=== PATIENT | female | born 1975 | race Two or more races ===

== ENCOUNTER 2017-09-12 14:58 | Inpatient (IN) | payer MEDICAID ==
[~2017-09-12] VITALS: Ht 160 cm; Wt 56.7 kg
[2017-09-12] MEDS ORDERED: Isovue-300 100ml vial INJ PRN (15:15)
[2017-09-12 15:30] VITALS: BP 98/66
[2017-09-12 15:47] LABS: BASOPHILS % (AUTO) 0.7 % (0.0-2.0); EOSINOPHILS % (AUTO) 1.8 % (0.0-3.0); HEMATOCRIT 26.5 % (37.0-47.0); HEMOGLOBIN 9.1 G/DL (12.0-16.0); LYMPHOCYTES % (AUTO) 15.7 % (20.0-45.0); MEAN CORPUSCULAR VOLUME 89 FL (80-99); MONOCYTES % (AUTO) 6.6 % (1.0-10.0); NEUTROPHILS % (AUTO) 75.2 % (45.0-75.0); PLATELET COUNT 351 K/UL (150-450); RED BLOOD COUNT 2.97 M/UL (4.20-5.40); RED CELL DISTRIBUTION WIDTH 12.2 % (11.6-14.8); WHITE BLOOD COUNT 11.4 K/UL (4.8-10.8)
[2017-09-12 15:54] LABS: ANION GAP 9 mmol/L (5-15); BLOOD UREA NITROGEN 13 mg/dL (7-18); CALCIUM 8.5 MG/DL (8.5-10.1); CARBON DIOXIDE 27 MMOL/L (21-32); CHLORIDE 105 MMOL/L (98-107); CREATININE 0.6 MG/DL (0.55-1.30); INR 0.9 (0.9-1.1); POTASSIUM 3.5 MMOL/L (3.5-5.1); SODIUM 141 MMOL/L (136-145)
[2017-09-12 15:57] LABS: ALANINE AMINOTRANSFERASE 28 U/L (12-78); ALBUMIN 3.3 G/DL (3.4-5.0); ALBUMIN/GLOBULIN RATIO 0.9 (1.0-2.7); ALKALINE PHOSPHATASE 57 U/L (46-116); ASPARTATE AMINO TRANSFERASE 19 U/L (15-37); BILIRUBIN,TOTAL 0.3 MG/DL (0.2-1.0); CREATINE KINASE 70 U/L (26-308)
[2017-09-12 16:30] VITALS: BP 88/59
[2017-09-12 16:41] LABS: BILIRUBIN, URINE NEGATIVE (NEGATIVE); GLUCOSE, URINE (UA) NEGATIVE (NEGATIVE); KETONES,URINE NEGATIVE (NEGATIVE); LEUKOCYTE ESTERASE ,URINE NEGATIVE (NEGATIVE); NITRITE,URINE NEGATIVE (NEGATIVE); PH,URINE 5 (4.5-8.0); PROTEIN,URINE 1+ (NEGATIVE); UROBILINOGEN,URINE 1 MG/DL (0.0-1.0)
[2017-09-12 16:44] LABS: APPEARANCE,URINE CLEAR; COLOR,URINE YELLOW
[2017-09-12 16:50] VITALS: BP 98/66
[2017-09-12] MEDS ORDERED: Sodium Chloride 500ML 500 ML IV ONE (17:00)
[2017-09-12] MEDS ORDERED: Morphine Sulfate 4mg/ml Inj ONE (17:03)
[2017-09-12] MEDS ORDERED: Morphine Sulfate 2mg/ml Inj IVP ONE (17:15)
--- NOTE | 2017-09-12 17:20 | Diagnostic Imaging Report ---
Indication: Pain Technique: XRAY Chest 1v Comparison: None Findings: Haziness of the peripheral lungs bilaterally likely related to attenuation from overlying breast tissues. Heart size and mediastinal contours within normal limits. No definite focal airspace consolidation, pleural effusion or pneumothorax. No acute osseous abnormality seen. Lower abdominal shield in place. Impression: No radiographic evidence of acute cardiopulmonary disease.
--- NOTE | 2017-09-12 18:12 | Emergency Room Report ---
History of Present Illness General Chief Complaint: General Complaint Source: Patient, EMS Present Illness HPI Patient had breast augmentation surgery in [facility] 10 days ago. She carried a bag of groceries this afternoon and felt increased pain in her R breast with swelling. She spoke to the surgeon in [place] and he stated there must have been bleeding in the breast. EMS were called and transported the patient here. Pain reported at 5/10, aching pressure, not radiating - R breast. Swelling. No fever, drainage, hematoma or nipple discharge. She also had liposuction from thighs and adipose tissue implanted to gluteal area. No NVD, abdominal pain, URI sy, cough, other chest pain, dysuria. LNMP was normal and she doesn't believe she is . No extremity pain, headache. Allergies: Coded Allergies: No Known Allergies (Unverified , 09/12/17) Patient History Past Medical History: see triage record Past Surgical History: other - breast augmentation and liposuction Social History: Denies: smoking Social History Narrative Last Menstrual Period: 4-19 Now: No Reviewed Nursing Documentation: PMH: Agreed; PSxH: Agreed Nursing Documentation-PMH Past Medical History: No History, Except For Review of Systems All Other Systems: negative except mentioned in HPI Physical Exam Vital Signs Date Time Temp Pulse Resp B/P (MAP) Pulse Ox O2 Delivery O2 Flow Rate FiO2 09/12/17 14:50 97.4 110 14 106/66 99 Room Air 97.3 Sp02 EP Interpretation: reviewed, normal General Appearance: well appearing, no apparent distress, GCS 15 Head: normocephalic Eyes: bilateral eye PERRL, bilateral eye conjunctivae pale ENT: moist mucus membranes Neck: supple Respiratory: lungs clear, normal breath sounds, other - large defored breast R , surgical changes Cardiovascular #1: regular rate, rhythm Cardiovascular #2: 2+ radial (R) Gastrointestinal: normal inspection, normal bowel sounds, non tender, no mass, non-distended Musculoskeletal: back normal, gait/station normal, normal range of motion Neurologic: alert, oriented x3, grossly normal Psychiatric: mood/affect normal Skin: warm/dry, other - surgical scars, no erythema or drainage Medical Decision Making Diagnostic Impression: Primary Impression: Hematoma post breast augmentation Additional Impression: Anemia Qualified Codes: D62 - Acute posthemorrhagic anemia ER Course Patient with breast swelling post augmentation surgery. DDx: hematoma, displaced implant, abscess amongst others. Hx and exam most consistent with hematoma. Patient is pale and concern over blood loss. Evaluation with EKG, CXR, CT chest and labs. Set up for possible transfusion if needed. Also will focus on pain treatment. EKG no injury, CXR implants and haziness R chest. H/H low, WBC normal. CMP unremarkable. Slightly hypotensive. Fluid bolus. Treated for pain. CT with hematoma. Discussed with Dr. Stallings and Dr. Oliver. Discussed possible blood transfusion with patient. Admit med. Laboratory Tests Test 09/12/17 15:10 09/12/17 16:22 09/12/17 17:10 White Blood Count 11.4 K/UL (4.8-10.8) H Red Blood Count 2.97 M/UL (4.20-5.40) L Hemoglobin 9.1 G/DL (12.0-16.0) L Hematocrit 26.5 % (37.0-47.0) L Mean Corpuscular Volume 89 FL (80-99) Mean Corpuscular Hemoglobin 30.6 PG (27.0-31.0) Mean Corpuscular Hemoglobin Concent 34.4 G/DL (32.0-36.0) Red Cell Distribution Width 12.2 % (11.6-14.8) Platelet Count 351 K/UL (150-450) Mean Platelet Volume 4.7 FL (6.5-10.1) L Neutrophils (%) (Auto) 75.2 % (45.0-75.0) H Lymphocytes (%) (Auto) 15.7 % (20.0-45.0) L Monocytes (%) (Auto) 6.6 % (1.0-10.0) Eosinophils (%) (Auto) 1.8 % (0.0-3.0) Basophils (%) (Auto) 0.7 % (0.0-2.0) Prothrombin Time 9.2 SEC (9.30-11.50) L Prothrombin Time INR 0.9 (0.9-1.1) PTT 22 SEC (23-33) L Sodium Level 141 MMOL/L (136-145) Potassium Level 3.5 MMOL/L (3.5-5.1) Chloride Level 105 MMOL/L (98-107) Carbon Dioxide Level 27 MMOL/L (21-32) Anion Gap 9 mmol/L (5-15) Blood Urea Nitrogen 13 mg/dL (7-18) Creatinine 0.6 MG/DL (0.55-1.30) Estimate Glomerular Filtration Rate > 60 mL/min (>60) Glucose Level 121 MG/DL (74-106) H Calcium Level 8.5 MG/DL (8.5-10.1) Total Bilirubin 0.3 MG/DL (0.2-1.0) Aspartate Amino Transferase (AST) 19 U/L (15-37) Alanine Aminotransferase (ALT) 28 U/L (12-78) Alkaline Phosphatase 57 U/L (46-116) Total Creatine Kinase 70 U/L (26-308) Total Protein 7.0 G/DL (6.4-8.2) Albumin 3.3 G/DL (3.4-5.0) L Globulin 3.7 g/dL Albumin/Globulin Ratio 0.9 (1.0-2.7) L Urine Color Yellow Urine Appearance Clear Urine pH 5 (4.5-8.0) Urine Specific [place] 1.025 (1.005-1.035) Urine Protein 1+ (NEGATIVE) H Urine Glucose (UA) Negative (NEGATIVE) Urine Ketones Negative (NEGATIVE) Urine Occult Blood 2+ (NEGATIVE) H Urine Nitrite Negative (NEGATIVE) Urine Bilirubin Negative (NEGATIVE) Urine Urobilinogen 1 MG/DL (0.0-1.0) H Urine Leukocyte Esterase Negative (NEGATIVE) Urine RBC 2-4 /HPF (0 - 2) H Urine WBC 0-2 /HPF (0 - 2) Urine Squamous Epithelial Cells Moderate /LPF (NONE/OCC) H Urine Bacteria Moderate /HPF (NONE) H Urine Yeast Few /HPF (NONE) H Urine HCG, Qualitative Negative (NEGATIVE) Lactic Acid Level 0.70 mmol/L (0.66-2.22) EKG Diagnostic Results Rate: tachycardiac Rhythm: NSR ST Segments: no acute changes Rhythm Strip Diag. Results EP Interpretation: yes Rhythm: no PVC's, no ectopy, other - ST Chest X-Ray Diagnostic Results Chest X-Ray Diagnostic Results : Chest X-Ray Ordered: Yes # of Views/Limited/Complete: 1 View Indication: Other EP Interpretation: Yes Interpretation: no consolidation, no effusion, no pneumothorax, other - opacity R>L Impression: Other Electronically Signed by: Imtiaz Fraire MD CT/MRI/US Diagnostic Results CT/MRI/US Diagnostic Results : Imaging Test Ordered: chest Impression hematoma vs other fluid collection R breast Last Vital Signs Date Time Temp Pulse Resp B/P (MAP) Pulse Ox O2 Delivery O2 Flow Rate FiO2 09/12/17 20:24 98.3 95 18 104/63 98 Room Air 98.3 Status: improved Disposition: ADMITTED INPATIENT Condition: Serious Referrals: [facility],REFERRING (PCP) Imtiaz Fraire M.D. Sep 12, 2017 18:12
[2017-09-12] MEDS ORDERED: TORADOL10 MG PO (18:33)
[2017-09-12] MEDS ORDERED: OMEPRAZOLE20 M2 ORAL (18:33)
[2017-09-12 18:44] VITALS: BP 92/51
[2017-09-12 20:24] VITALS: BP 104/63
--- NOTE | 2017-09-12 20:55 | Consultation ---
History of Present Illness General Date patient seen: Sep 12, 2017 Chief Complaint: General Complaint Reason for Consultation: right breast hematoma Present Illness HPI 41 year old female with history of breast augmentation years ago recently had a revision 10 days ago (09/02/2017) in [facility]. Initial implants were placed submuscular year ago but formed capsule so on revision new implants were placed subglandular as per patient. C+ cup size as per patient. Was well since until this afternoon when she was lifting something and noted right breast pain. over subsequent hours noted significant right breast swelling and came to ED for evaluation. Right breast noted to be significantly larger with fluid shift indicating likely hematoma. She called her surgeon in [place] who advised her to go to ED. Surgery called to evaluate upon admission. patient seen, chart reviewed, patient examined with environmental sampler present. Allergies: Coded Allergies: No Known Allergies (Unverified , 09/12/17) Medication History Scheduled Omeprazole (Omeprazole), 20 MG ORAL DAILY, (Reported) Discontinued Medications Ketorolac Tromethamine (Ketorolac Tromethamine), 30 MG PO DAILY, (Reported) Discontinued Reason: Pt stopped taking med Patient History History Provided By: Patient, Family Member Healthcare decision maker Resuscitation status Advanced Directive on File Past Medical/Surgical History Past Medical/Surgical History: (1) Anemia (2) Breast hematoma after procedure Review of Systems All Other Systems: negative except mentioned in HPI Physical Exam General Appearance: no apparent distress, alert Lines, tubes and drains: peripheral HEENT: normocephalic, mucous membranes moist, PERRL Neck: normal alignment, supple, normal inspection Respiratory/Chest: lungs clear, normal breath sounds, no respiratory distress, no accessory muscle use Breasts: other - left breast incision areolar c/d/i. right breast significantly larger with fluid collection likely hematoma. skin soft and good cap refill. incision c/d/i. Cardiovascular/Chest: normal peripheral pulses Abdomen: normal bowel sounds, soft, no organomegaly, no mass Extremities: non-tender Skin Exam: normal pigmentation, warm/dry Neurologic: alert, oriented x 3, responsive Last 24 Hour Vital Signs Date Time Temp Pulse Resp B/P (MAP) Pulse Ox O2 Delivery O2 Flow Rate FiO2 09/12/17 20:24 98.3 95 18 104/63 98 Room Air 98.3 09/12/17 19:10 98.2 100 14 92/51 99 Room Air 98.2 09/12/17 18:44 98.2 100 14 92/51 99 Room Air 98.2 09/12/17 17:06 97.4 09/12/17 16:50 98.0 96 14 98/66 99 Room Air 98.0 09/12/17 16:30 98.0 96 14 88/59 99 Room Air 98.0 09/12/17 15:32 97.4 09/12/17 15:30 97.3 96 14 98 99 Room Air 97.3 09/12/17 14:50 97.4 110 14 106/66 99 Room Air 97.3 Laboratory Tests Test 09/12/17 15:10 09/12/17 16:22 09/12/17 17:10 White Blood Count 11.4 K/UL (4.8-10.8) H Red Blood Count 2.97 M/UL (4.20-5.40) L Hemoglobin 9.1 G/DL (12.0-16.0) L Hematocrit 26.5 % (37.0-47.0) L Mean Corpuscular Volume 89 FL (80-99) Mean Corpuscular Hemoglobin 30.6 PG (27.0-31.0) Mean Corpuscular Hemoglobin Concent 34.4 G/DL (32.0-36.0) Red Cell Distribution Width 12.2 % (11.6-14.8) Platelet Count 351 K/UL (150-450) Mean Platelet Volume 4.7 FL (6.5-10.1) L Neutrophils (%) (Auto) 75.2 % (45.0-75.0) H Lymphocytes (%) (Auto) 15.7 % (20.0-45.0) L Monocytes (%) (Auto) 6.6 % (1.0-10.0) Eosinophils (%) (Auto) 1.8 % (0.0-3.0) Basophils (%) (Auto) 0.7 % (0.0-2.0) Prothrombin Time 9.2 SEC (9.30-11.50) L Prothromb Time International Ratio 0.9 (0.9-1.1) Activated Partial Thromboplast Time 22 SEC (23-33) L Sodium Level 141 MMOL/L (136-145) Potassium Level 3.5 MMOL/L (3.5-5.1) Chloride Level 105 MMOL/L (98-107) Carbon Dioxide Level 27 MMOL/L (21-32) Anion Gap 9 mmol/L (5-15) Blood Urea Nitrogen 13 mg/dL (7-18) Creatinine 0.6 MG/DL (0.55-1.30) Estimat Glomerular Filtration Rate > 60 mL/min (>60) Glucose Level 121 MG/DL (74-106) H Calcium Level 8.5 MG/DL (8.5-10.1) Total Bilirubin 0.3 MG/DL (0.2-1.0) Aspartate Amino Transf (AST/SGOT) 19 U/L (15-37) Alanine Aminotransferase (ALT/SGPT) 28 U/L (12-78) Alkaline Phosphatase 57 U/L (46-116) Total Creatine Kinase 70 U/L (26-308) Total Protein 7.0 G/DL (6.4-8.2) Albumin 3.3 G/DL (3.4-5.0) L Globulin 3.7 g/dL Albumin/Globulin Ratio 0.9 (1.0-2.7) L Urine Color Yellow Urine Appearance Clear Urine pH 5 (4.5-8.0) Urine Specific [place] 1.025 (1.005-1.035) Urine Protein 1+ (NEGATIVE) H Urine Glucose (UA) Negative (NEGATIVE) Urine Ketones Negative (NEGATIVE) Urine Occult Blood 2+ (NEGATIVE) H Urine Nitrite Negative (NEGATIVE) Urine Bilirubin Negative (NEGATIVE) Urine Urobilinogen 1 MG/DL (0.0-1.0) H Urine Leukocyte Esterase Negative (NEGATIVE) Urine RBC 2-4 /HPF (0 - 2) H Urine WBC 0-2 /HPF (0 - 2) Urine Squamous Epithelial Cells Moderate /LPF (NONE/OCC) H Urine Bacteria Moderate /HPF (NONE) H Urine Yeast Few /HPF (NONE) H Urine HCG, Qualitative Negative (NEGATIVE) Lactic Acid Level 0.70 mmol/L (0.66-2.22) Height (Feet): 5 Height (Inches): 3.00 Weight (Pounds): 125 Medications Current Medications Medications (Trade) Dose Ordered Sig/Piotr Route PRN Reason Start Time Stop Time Status Last Admin Dose Admin Acetaminophen (Tylenol) 650 mg Q6H PRN ORAL Mild Pain/Temp > 100.5 09/12/17 20:30 10/12/17 20:29 UNV Dextrose/Sodium Chloride 1,000 ml @ 60 mls/hr [id number] IV 09/12/17 20:30 10/12/17 20:29 UNV Ioversol (Isovue) 100 ml NOW PRN INJ Radiology Procedure 09/12/17 15:15 09/14/17 15:06 Morphine Sulfate (Morphine Sulfate) 2 mg Q4H PRN IVP Severe Pain (Pain Scale 7-10) 09/12/17 20:30 09/19/17 20:29 UNV Sodium Chloride 1,000 ml @ 300 mls/hr [id number] IV 09/12/17 15:15 10/12/17 15:14 09/12/17 15:34 Assessment/Plan Problem List: (1) Breast hematoma after procedure Assessment & Plan: 41F recent breast augmentation with subglandular implants presented with acute bleeding in right breast. noted acute enlargement after activity. since stable in size. right breast significantly larger than left. skin intact and incision intact. no compromise noted. tender given enlargement. on n/v/f/c. labs noted. likely venous bleeding. will need to evacuate hematoma. unfortunately implant will be compromised given subdermal placement. Recommend evacuation of hematoma and implant. I discussed risks, benefits, and alternatives with patient. We discussed evacuation of hematoma/implant with drain placement and later revision of augmentation, or immediate reconstruction, or no surgical intervention. Patient and family discussed options and have decided to have hematoma evacuated , implant removed, and immediate reconstruction. I explained to the patient that we would need the assistance of a Plastic Surgeon for reconstruction. NPO p MN Will schedule for OR tomorrow when time available as she is stable and urgent but not emergency procedure consent IV fluids AM labs SNOMED: [id number] Status: stable Lopez Oliver Sep 12, 2017 20:55
[2017-09-12] MEDS ORDERED: D5 1/2NS 1,000 ML IV SCH (21:00)
--- NOTE | 2017-09-12 21:26 | Pre-Procedure Note/Attestation ---
Pre-Procedure Note/Attestation Complete Prior to Procedure Planned Procedure: right Procedure Narrative: Evacuation of right breast hematoma and implant with possible immediate reconstruction and drain placement Indications for Procedure Pre-Operative Diagnosis: right breast hematoma s/p augmentation Attestation I attest that I discussed the nature of the procedure; its benefits; risks and complications; and alternatives (and the risks and benefits of such alternatives ), prior to the procedure, with the patient (or the patient's legal arborist representative). I attest that, if there was a reasonable possibility of needing a blood transfusion, the patient (or the patient's legal arborist representative) was given the [facility] standardized written summary, pursuant to the [place] Blood Safety Act ([place] Health and Safety Code # 1645, as amended). I attest that I re-evaluated the patient just prior to the surgery and that there has been no change in the patient's H&P, except as documented below: Lopez Oliver Sep 12, 2017 21:26
[2017-09-12] MEDS ORDERED: Morphine Sulfate 4mg/ml Inj IM PRN (21:30)
[2017-09-12] MEDS: Morphine Sulfate 4mg/ml Inj IVP PRN (21:43)
[2017-09-12] MEDS: D5 1/2NS 1,000 ML IV SCH (22:30)
[2017-09-12] MEDS: ceFAZolin sod 2 GM in D5W 110 ML IVPB SCH (23:38)
[2017-09-13] VITALS (17 sets, daily range): BP systolic 91–122; BP diastolic 45–69
[2017-09-13] MEDS: Morphine Sulfate 4mg/ml Inj IVP PRN (04:22)
[2017-09-13] MEDS: D5 1/2NS 1,000 ML IV SCH ×3 (06:26→23:05)
[2017-09-13] MEDS: ceFAZolin sod 2 GM in D5W 110 ML IVPB SCH ×4 (06:26→23:03)
[2017-09-13 07:31] LABS: HEMOGLOBIN 7.8 G/DL (12.0-16.0); MEAN CORPUSCULAR VOLUME 89 FL (80-99); PLATELET COUNT 314 K/UL (150-450); RED BLOOD COUNT 2.57 M/UL (4.20-5.40); RED CELL DISTRIBUTION WIDTH 12.6 % (11.6-14.8); WHITE BLOOD COUNT 10.3 K/UL (4.8-10.8)
[2017-09-13 08:01] LABS: ANION GAP 8 mmol/L (5-15); BLOOD UREA NITROGEN 9 mg/dL (7-18); CALCIUM 7.9 MG/DL (8.5-10.1); CARBON DIOXIDE 26 MMOL/L (21-32); CHLORIDE 106 MMOL/L (98-107); CREATININE 0.6 MG/DL (0.55-1.30); POTASSIUM 3.7 MMOL/L (3.5-5.1); SODIUM 140 MMOL/L (136-145)
--- NOTE | 2017-09-13 08:58 | Diagnostic Imaging Report ---
Indication: Chest pain Technique: Continuous helical transaxial imaging of the chest was obtained from the thoracic inlet to the upper abdomen after intravenous nonionic contrast administration. Coronal 2-D reformats were also obtained. Automatic Exposure Control was utilized. Total Dose length Product (DLP): 683.[address] Dose Index Volume (CTDIvol): 16.65 mGy Comparison: none Findings: The right breast implant is abnormal. The shape of the implant is irregular, slightly diminished in volume with a slightly undulating capsule. There is a moderate degree of surrounding slightly high density fluid which may be blood. Consequently the right breast is enlarged. Findings are suspicious for trauma. Correlate clinically. The left breast implant is unremarkable. The remainder the exam is essentially normal. The there are calcified nodules within the lung consistent with old granulomatous disease. The heart, aorta and pulmonary artery. Grossly unremarkable. No pleural effusion identified. The upper abdomen is unremarkable. Osseous structures appear unremarkable. IMPRESSION: Abnormal right breast implant with a moderate high density surrounding fluid or blood. The implant may be partially ruptured as the capsule appears slightly irregular and redundant. Correlate clinically. Old granulomatous disease. [facility] has communicated the preliminary results to the Emergency Department. Their findings are largely concordant with this report. The CT scanner at [facility] is accredited by the [employer] and the scans are performed using dose optimization techniques as appropriate to a performed exam including Automatic Exposure control.
[2017-09-13] MEDS ORDERED: NS Irrig 1000ml ONE (15:00)
[2017-09-13] MEDS ORDERED: Propofol 200mg/20ml IV ONE (15:00)
[2017-09-13] MEDS ORDERED: Midazolam 2mg/2ml Inj ONE (15:00)
[2017-09-13] MEDS ORDERED: LR 1000ml ONE (15:00)
[2017-09-13] MEDS ORDERED: Sterile Water Irrig 1000ml IRRIG ONE (15:00)
[2017-09-13] MEDS ORDERED: fentaNYL 100 mcg/2 mL IV ONE (15:00)
[2017-09-13] MEDS ORDERED: Ketorolac 30mg Inj ONE (15:00)
--- NOTE | 2017-09-13 15:01 | General Surgery Progress Note ---
General Surgery-Progress Note Subjective Additional Comments no acute events. doing well. h/h low Objective Last 24 Hour Vital Signs Date Time Temp Pulse Resp B/P (MAP) Pulse Ox O2 Delivery O2 Flow Rate FiO2 09/13/17 12:00 98.4 84 17 93/45 97 98.4 09/13/17 09:25 98.0 09/13/17 08:26 98.0 09/13/17 08:00 98.0 88 17 102/66 97 98.0 09/13/17 04:00 98.0 91 18 100/63 100 Room Air 98.0 09/13/17 00:00 97.6 90 17 91/52 98 Room Air 97.6 09/12/17 20:24 98.3 95 18 104/63 98 Room Air 98.3 09/12/17 19:10 98.2 100 14 92/51 99 Room Air 98.2 09/12/17 18:44 98.2 100 14 92/51 99 Room Air 98.2 09/12/17 17:06 97.4 09/12/17 16:50 98.0 96 14 98/66 99 Room Air 98.0 09/12/17 16:30 98.0 96 14 88/59 99 Room Air 98.0 09/12/17 15:32 97.4 09/12/17 15:30 97.3 96 14 98/66 99 Room Air 97.3 I&O Intake and Output 09/12/17 09/13/17 19:00 07:00 Intake Total 1050 ml 1000 ml Balance 1050 ml 1000 ml Intake Oral 50 ml 300 ml IV Total 1000 ml 700 ml # Voids 1 4 Drains: none Cardiovascular: RSR Respiratory: clear Abdomen: soft, non-tender, present bowel sounds Extremities: no edema, no tenderness, no cyanosis, other Laboratory Tests Test 09/12/17 15:10 09/12/17 16:22 09/12/17 17:10 09/13/17 07:16 White Blood Count 11.4 K/UL (4.8-10.8) H 10.3 K/UL (4.8-10.8) Red Blood Count 2.97 M/UL (4.20-5.40) L 2.57 M/UL (4.20-5.40) L Hemoglobin 9.1 G/DL (12.0-16.0) L 7.8 G/DL (12.0-16.0) L Hematocrit 26.5 % (37.0-47.0) L 23.0 % (37.0-47.0) L Mean Corpuscular Volume 89 FL (80-99) 89 FL (80-99) Mean Corpuscular Hemoglobin 30.6 PG (27.0-31.0) 30.2 PG (27.0-31.0) Mean Corpuscular Hemoglobin Concent 34.4 G/DL (32.0-36.0) 33.7 G/DL (32.0-36.0) Red Cell Distribution Width 12.2 % (11.6-14.8) 12.6 % (11.6-14.8) Platelet Count 351 K/UL (150-450) 314 K/UL (150-450) Mean Platelet Volume 4.7 FL (6.5-10.1) L 4.8 FL (6.5-10.1) L Neutrophils (%) (Auto) 75.2 % (45.0-75.0) H % (45.0-75.0) Lymphocytes (%) (Auto) 15.7 % (20.0-45.0) L % (20.0-45.0) Monocytes (%) (Auto) 6.6 % (1.0-10.0) % (1.0-10.0) Eosinophils (%) (Auto) 1.8 % (0.0-3.0) % (0.0-3.0) Basophils (%) (Auto) 0.7 % (0.0-2.0) % (0.0-2.0) Prothrombin Time 9.2 SEC (9.30-11.50) L Prothromb Time International Ratio 0.9 (0.9-1.1) Activated Partial Thromboplast Time 22 SEC (23-33) L Sodium Level 141 MMOL/L (136-145) 140 MMOL/L (136-145) Potassium Level 3.5 MMOL/L (3.5-5.1) 3.7 MMOL/L (3.5-5.1) Chloride Level 105 MMOL/L (98-107) 106 MMOL/L (98-107) Carbon Dioxide Level 27 MMOL/L (21-32) 26 MMOL/L (21-32) Anion Gap 9 mmol/L (5-15) 8 mmol/L (5-15) Blood Urea Nitrogen 13 mg/dL (7-18) 9 mg/dL (7-18) Creatinine 0.6 MG/DL (0.55-1.30) 0.6 MG/DL (0.55-1.30) Estimat Glomerular Filtration Rate > 60 mL/min (>60) > 60 mL/min (>60) Glucose Level 121 MG/DL (74-106) H 129 MG/DL (74-106) H Calcium Level 8.5 MG/DL (8.5-10.1) 7.9 MG/DL (8.5-10.1) L Total Bilirubin 0.3 MG/DL (0.2-1.0) Aspartate Amino Transf (AST/SGOT) 19 U/L (15-37) Alanine Aminotransferase (ALT/SGPT) 28 U/L (12-78) Alkaline Phosphatase 57 U/L (46-116) Total Creatine Kinase 70 U/L (26-308) Total Protein 7.0 G/DL (6.4-8.2) Albumin 3.3 G/DL (3.4-5.0) L Globulin 3.7 g/dL Albumin/Globulin Ratio 0.9 (1.0-2.7) L Urine Color Yellow Urine Appearance Clear Urine pH 5 (4.5-8.0) Urine Specific [place] 1.025 (1.005-1.035) Urine Protein 1+ (NEGATIVE) H Urine Glucose (UA) Negative (NEGATIVE) Urine Ketones Negative (NEGATIVE) Urine Occult Blood 2+ (NEGATIVE) H Urine Nitrite Negative (NEGATIVE) Urine Bilirubin Negative (NEGATIVE) Urine Urobilinogen 1 MG/DL (0.0-1.0) H Urine Leukocyte Esterase Negative (NEGATIVE) Urine RBC 2-4 /HPF (0 - 2) H Urine WBC 0-2 /HPF (0 - 2) Urine Squamous Epithelial Cells Moderate /LPF (NONE/OCC) H Urine Bacteria Moderate /HPF (NONE) H Urine Yeast Few /HPF (NONE) H Urine HCG, Qualitative Negative (NEGATIVE) Lactic Acid Level 0.70 mmol/L (0.66-2.22) Differential Total Cells Counted 100 Neutrophils % (Manual) 77 % (45-75) H Lymphocytes % (Manual) 18 % (20-45) L Monocytes % (Manual) 4 % (1-10) Eosinophils % (Manual) 1 % (0-3) Basophils % (Manual) 0 % (0-2) Band Neutrophils 0 % (0-8) Platelet Estimate Adequate Platelet Morphology Normal Hypochromasia 1+ Anisocytosis 1+ Additional Comments right breast larger with fluid shift Plan Problems: (1) Breast hematoma after procedure Assessment & Plan: 41F recent breast augmentation with subglandular implants presented with acute bleeding in right breast. noted acute enlargement after activity. since stable in size. right breast significantly larger than left. skin intact and incision intact. no compromise noted. tender given enlargement. on n/v/f/c. labs noted. likely venous bleeding. will need to evacuate hematoma. unfortunately implant will be compromised given subdermal placement. Recommend evacuation of hematoma and implant. I discussed risks, benefits, and alternatives with patient. We discussed evacuation of hematoma/implant with drain placement and later revision of augmentation, or immediate reconstruction, or no surgical intervention. Patient and family discussed options and have decided to have hematoma evacuated , implant removed, and immediate reconstruction. I explained to the patient that we would need the assistance of a Plastic Surgeon for reconstruction. was fortunate enough to have Dr. Crook be available to assist with procedure. will continue with evacuation of right breast hematoma, possible removal of implant, possible extension of prior surgical scar NPO consent IV fluids transfuse 2 units prbc Lopez Oliver September 13, 2017 15:01
[2017-09-13] MEDS ORDERED: NeoSporin Gu Irrig 1ml Amp IRRIG ONE (16:01)
[2017-09-13] MEDS ORDERED: Bacitracin 50000 Units Vial IRRIG ONE (16:01)
[2017-09-13] MEDS ORDERED: LR 1000ml 1,000 ML IVLG SCH (16:36)
--- NOTE | 2017-09-13 16:36 | Anethesia Preoperative Eval ---
Anesthesia Pre-op PMH/ROS General Date of Evaluation: September 13, 2017 Time of Evaluation: 15:40 Anesthesiologist: Lino ASA Score: ASA 2 Mallampati Score Class I : Soft palate, uvula, fauces, pillars visible Class II: Soft palate, uvula, fauces visible Class III: Soft palate, base of uvula visible Class IV: Only hard plate visible Mallampati Classification: Class II Surgeon: Guerda Diagnosis: R breast implat hematoma Surgical Procedure: Revision of R breast implant hematoma Anesthesia History: none Family History: no anesthesia problems Allergies: Coded Allergies: No Known Allergies (Unverified , 09/12/17) Medications: see eMAR Past Medical History Pulmonary: Denies: asthma, COPD, ALESHA, other Gastrointestinal/Genitourinary: Reports: GERD - mild; Denies: CRI, ESRD, other Neurologic/Psychiatric: Denies: dementia, CVA, depression/anxiety, TIA, other Endocrine: Denies: DM, hypothyroidism, steroids, other HEENT: Denies: cataract (L), cataract (R), glaucoma, [place] (L), [place] (R), other Hematology/Immune: Reports: anemia; Denies: DVT, bleeding disorder, other Musculoskeletal/Integumentary: Denies: OA, RA, DJD, DDD, edema, other PMH Narrative: as above PSxH Narrative: see chart Anesthesia Pre-op Phys. Exam Physician Exam Last Vital Signs Date Time Temp Pulse Resp B/P (MAP) Pulse Ox O2 Delivery O2 Flow Rate FiO2 09/13/17 12:00 98.4 84 17 93/45 97 98.4 09/13/17 04:00 Room Air Constitutional: NAD Neurologic: CN 2-12 intact Cardiovascular: RRR, no M/R/G Respiratory: CTA Gastrointestinal: S/NT/ND Airway Exam Mallampati Score: Class II MO: full Neck: flexible ROM: full Teeth: intact Dentures: no upper, no lower Anesthesia Pre-op A/P Labs Hematology Test 09/13/17 07:16 White Blood Count 10.3 K/UL (4.8-10.8) Red Blood Count 2.57 M/UL (4.20-5.40) L Hemoglobin 7.8 G/DL (12.0-16.0) L Hematocrit 23.0 % (37.0-47.0) L Mean Corpuscular Volume 89 FL (80-99) Mean Corpuscular Hemoglobin 30.2 PG (27.0-31.0) Mean Corpuscular Hemoglobin Concent 33.7 G/DL (32.0-36.0) Red Cell Distribution Width 12.6 % (11.6-14.8) Platelet Count 314 K/UL (150-450) Mean Platelet Volume 4.8 FL (6.5-10.1) L Neutrophils (%) (Auto) % (45.0-75.0) Lymphocytes (%) (Auto) % (20.0-45.0) Monocytes (%) (Auto) % (1.0-10.0) Eosinophils (%) (Auto) % (0.0-3.0) Basophils (%) (Auto) % (0.0-2.0) Differential Total Cells Counted 100 Neutrophils % (Manual) 77 % (45-75) H Lymphocytes % (Manual) 18 % (20-45) L Monocytes % (Manual) 4 % (1-10) Eosinophils % (Manual) 1 % (0-3) Basophils % (Manual) 0 % (0-2) Band Neutrophils 0 % (0-8) Platelet Estimate Adequate Platelet Morphology Normal Hypochromasia 1+ Anisocytosis 1+ Chemistry Test 09/12/17 17:10 09/13/17 07:16 Lactic Acid Level 0.70 mmol/L (0.66-2.22) Sodium Level 140 MMOL/L (136-145) Potassium Level 3.7 MMOL/L (3.5-5.1) Chloride Level 106 MMOL/L (98-107) Carbon Dioxide Level 26 MMOL/L (21-32) Anion Gap 8 mmol/L (5-15) Blood Urea Nitrogen 9 mg/dL (7-18) Creatinine 0.6 MG/DL (0.55-1.30) Estimat Glomerular Filtration Rate > 60 mL/min (>60) Glucose Level 129 MG/DL (74-106) H Calcium Level 7.9 MG/DL (8.5-10.1) L Risk Assessment & Plan Assessment: ASA 2 Plan: GA with LMA Pre-Antibiotics Drug: Ancef 1gr. Given Within 1 Hr of Incision: Yes Time Given: 16:02 ZURI PRIDE M.D. September 13, 2017 16:36
[2017-09-13] MEDS ORDERED: DiphenhydrAMINE 50mg/ml Inj IVP PRN ×2 (16:45→17:30)
[2017-09-13] MEDS ORDERED: Meperidine 50mg/ml Inj(FOR RIGORS ONLY) IV PRN ×2 (16:45)
[2017-09-13] MEDS ORDERED: Midazolam 2mg/2ml Inj IVP PRN (16:45)
[2017-09-13] MEDS ORDERED: Ketorolac 30mg Inj IV PRN (16:45)
--- NOTE | 2017-09-13 16:54 | Cardiology Report ---
APPROVED REPORT EKG Measurement Heart [id number] Sinus tachycardia Rightward axis Cannot rule out Anterior infarct, age undetermined Abnormal ECG
--- NOTE | 2017-09-13 17:00 | General Progress Note ---
Progress Note Progress Note Pt seen and examined. 10 days s/p BAM in [facility] and has a right breast hematoma. Presented to the ER and admitted by general surgery. I was consulted on the case. On exam has significant enlargement of the right breast. Nipple areolar complex is viable and no skin changes. Will need OR evacuation of clot and control of bleeding. I will be assisting Dr. Oliver in this case. Plan will be to keep the implant if intact and to place a drain. Discussed the risks and benefits in detail with patient who understands and agrees to proceed. MD HARDIK Becker AMIR September 13, 2017 17:00
--- NOTE | 2017-09-13 17:00 | History and Physical Report ---
DATE OF ADMISSION: 09/12/2017 APPROXIMATE TIME: 1 p.m. CONSULTANTS: Lopez Oliver M.D. CHIEF COMPLAINT: Right breast hematoma. BRIEF HISTORY: The patient is a 41-year-old female who lives at home went to [facility] 11 days ago, had a breast augmentation, was doing fine. The day before yesterday the patient was holding Apparently right breast started becoming more tender and now started getting swollen. The patient came to [place], diagnosed with right breast hematoma, admitted to medical floor for further treatment. Currently, calm in bed, slight right breast pain, no complaint otherwise. REVIEW OF SYSTEMS: No chest pain. No shortness of breath. No nausea, vomiting, or diarrhea. PAST MEDICAL HISTORY: Nothing. PAST SURGICAL HISTORY: Recent breast augmentation. MEDICATIONS: Include cefazolin, Zofran, morphine, and Tylenol. ALLERGIES: Denies. SOCIAL HISTORY: No smoking. Occasional alcohol. No intravenous drug abuse. FAMILY HISTORY: Noncontributory. PHYSICAL EXAMINATION: GENERAL: Calm in room, oriented x3, no acute distress. VITAL SIGNS: Temperature is 98, pulse 84, respiratory rate 17, blood pressure 92/45. CARDIOVASCULAR: No murmur. LUNGS: Distant and clear. BREASTS: Right breast slightly swollen. No erythema slightly tender in the medial area. ABDOMEN: Bowel sounds positive. Nontender and nondistended. EXTREMITIES: No cyanosis, clubbing, or edema. NEUROLOGIC: Cranial nerves II through XII grossly intact. Deep tendon reflexes 2+/4. Muscle strength 5/5. LABORATORY AND DIAGNOSTIC DATA: Hemoglobin 7.8, otherwise CBC is normal. BMP shows glucose 129, otherwise BMP is normal. INR is 0.9. PTT is 22. Urinalysis is 2+ occult blood, otherwise normal. ASSESSMENT: 1. Right breast hematoma. 2. Anemia. PLAN: 1. Continue premeds. 2. Transfuse three units PRBC. 3. CBC and BMP in the morning. 4. Pending surgery per Dr. Oliver. 5. Pain control. 6. We will continue to follow the patient medically. Bryn Stallings D.O. DR: Reena JOB#: [id number] CC:
--- NOTE | 2017-09-13 17:18 | Brief Operative Note ---
Immediate Post Operative Note Operative Note Pre-op Diagnosis: right breast hematoma s/p augmentation Procedure: evacuation of right breast hematoma Post-op Diagnosis: same as pre-op Surgeon: peg Medical Physics Professor: sourav Anesthesia: general Specimen: none Complications: none Condition: stable Fluids: see records Estimated Blood Loss: minimal Drains: SCOORRO Implant(s) used?: Yes - patients prior implant Lopez Oliver September 13, 2017 17:18
--- NOTE | 2017-09-13 17:22 | Immediate Post-Op Evaluation ---
Immediate Post-Op Evalulation Immediate Post-Op Evalulation Procedure: Revision of R breast implant, evacuation of hematoma Date of Evaluation: September 13, 2017 Time of Evaluation: 17:20 IV Fluids: 600 Blood Products: Hespan 500 Estimated Blood Loss: surgical <50 hematoma and clots about 1000 Urinary Output: none Blood Pressure Systolic: 105 Blood Pressure Diastolic: 67 Pulse Rate: 84 Respiratory Rate: 20 O2 Sat by Pulse Oximetry: 99 Temperature (Fahrenheit): 97.5 Pain Score (1-10): 1 Nausea: No Vomiting: No Complications NONE Patient Status: reacts, patent, none Hydration Status: adequate ZURI PRIDE M.D. September 13, 2017 17:22
[2017-09-13] MEDS ORDERED: Morphine Sulfate 4mg/ml Inj IVP PRN (17:30)
[2017-09-13] MEDS ORDERED: HYDROcodone/Acetamin 10/325 tab ORAL PRN (17:30)
[2017-09-13] MEDS: Docusate 100mg cap ORAL SCH (18:00)
[2017-09-13 18:17] LABS: HEMATOCRIT 18.8 % (37.0-47.0); MEAN CORPUSCULAR VOLUME 89 FL (80-99); PLATELET COUNT 250 K/UL (150-450); RED BLOOD COUNT 2.12 M/UL (4.20-5.40); RED CELL DISTRIBUTION WIDTH 12.7 % (11.6-14.8); WHITE BLOOD COUNT 7.9 K/UL (4.8-10.8)
[2017-09-13 18:39] LABS: HEMOGLOBIN 6.3 G/DL (12.0-16.0)
[2017-09-14] VITALS (8 sets, daily range): BP systolic 105–121; BP diastolic 59–71
[2017-09-14] MEDS: Norco 5mg/325mg tab ORAL PRN ×2 (01:38→18:28)
[2017-09-14] MEDS: ceFAZolin sod 2 GM in D5W 110 ML IVPB SCH ×3 (05:29→22:29)
[2017-09-14 05:35] LABS: BASOPHILS % (AUTO) 0.4 % (0.0-2.0); EOSINOPHILS % (AUTO) 2.8 % (0.0-3.0); HEMATOCRIT 26.8 % (37.0-47.0); HEMOGLOBIN 9.3 G/DL (12.0-16.0); LYMPHOCYTES % (AUTO) 22.3 % (20.0-45.0); MEAN CORPUSCULAR VOLUME 89 FL (80-99); MONOCYTES % (AUTO) 6.6 % (1.0-10.0); NEUTROPHILS % (AUTO) 67.9 % (45.0-75.0); PLATELET COUNT 244 K/UL (150-450); RED BLOOD COUNT 3.02 M/UL (4.20-5.40); WHITE BLOOD COUNT 9.4 K/UL (4.8-10.8)
[2017-09-14 05:46] LABS: ANION GAP 3 mmol/L (5-15); BLOOD UREA NITROGEN 6 mg/dL (7-18); CALCIUM 7.6 MG/DL (8.5-10.1); CARBON DIOXIDE 30 MMOL/L (21-32); CHLORIDE 105 MMOL/L (98-107); CREATININE 0.6 MG/DL (0.55-1.30); POTASSIUM 3.6 MMOL/L (3.5-5.1); SODIUM 138 MMOL/L (136-145)
[2017-09-14] MEDS: Docusate 100mg cap ORAL SCH ×2 (08:24→17:39)
--- NOTE | 2017-09-14 13:38 | General Progress Note ---
Assessment/Plan Problem List: (1) Breast hematoma after procedure SNOMED: 298365720 (2) Anemia ICD Codes: D64.9 - Anemia, unspecified SNOMED: 411409328 Qualifiers: Qualified Codes: D62 - Acute posthemorrhagic anemia Status: stable, progressing, tolerating diet Assessment/Plan wound care pain control trasnfuse prn cbc bmp am sx follow up Subjective Constitutional: Reports: weakness Allergies: Coded Allergies: No Known Allergies (Unverified , 09/12/17) All Systems: reviewed and negative except above Subjective s/p r breast sx w drain Objective Last 24 Hour Vital Signs Date Time Temp Pulse Resp B/P (MAP) Pulse Ox O2 Delivery O2 Flow Rate FiO2 09/14/17 12:00 97.4 80 18 121/71 100 Room Air 97.4 09/14/17 08:00 98.2 80 20 106/60 97 Room Air 98.2 09/14/17 05:30 98.4 74 18 108/67 98 Room Air 98.4 09/14/17 03:10 97.9 73 18 105/60 100 Room Air 97.9 09/14/17 00:35 97.2 77 18 109/59 100 Room Air 97.2 09/14/17 00:20 97.4 72 19 114/59 99 Room Air 97.4 09/13/17 22:55 97.5 72 18 122/55 99 Room Air 97.5 09/13/17 20:30 97.4 83 18 115/59 100 Room Air 97.4 09/13/17 20:07 97.2 85 20 104/58 100 Room Air 97.2 09/13/17 18:45 97.9 72 20 107/57 99 Nasal Cannula 3.0 97.9 09/13/17 18:26 97.6 83 18 102/56 100 Nasal Cannula 3.0 97.6 09/13/17 18:10 89 16 105/61 100 Nasal Cannula 3.0 09/13/17 18:00 88 14 100/55 100 Nasal Cannula 3.0 09/13/17 17:50 83 16 109/59 98 Room Air 09/13/17 17:48 97.3 09/13/17 17:30 72 17 106/61 97 Room Air 09/13/17 17:22 207.5 84 20 99 09/13/17 17:20 89 20 99/69 100 Simple Mask 6.0 09/13/17 17:11 97.1 110 22 112/55 100 Simple Mask 6.0 97.1 Intake and Output 09/13/17 09/14/17 19:00 07:00 Intake Total 250 ml 840 ml Output Total 30 ml Balance 250 ml 810 ml Intake Oral 0 ml 240 ml IV Total 250 ml Blood Product 600 ml Output Drainage Total 30 ml # Voids 3 2 Laboratory Tests 09/13/17 18:00: White Blood Count 7.9, Red Blood Count 2.12L, Hemoglobin 6.3*L, Hematocrit 18.8L , Mean Corpuscular Volume 89, Mean Corpuscular Hemoglobin 29.9, Mean Corpuscular Hemoglobin Concent 33.6, Red Cell Distribution Width 12.7, Platelet Count 250, Mean Platelet Volume 4.4L, Neutrophils (%) (Auto) , Lymphocytes (%) ( Auto) , Monocytes (%) (Auto) , Eosinophils (%) (Auto) , Basophils (%) (Auto) , Differential Total Cells Counted 100, Neutrophils % (Manual) 62, Lymphocytes % ( Manual) 31, Monocytes % (Manual) 4, Eosinophils % (Manual) 2, Basophils % ( Manual) 0, Band Neutrophils 1, Platelet Estimate Adequate, Platelet Morphology Normal, Hypochromasia 2+, Anisocytosis 2+, Microcytosis 2+ 09/14/17 04:50: White Blood Count 9.4, Red Blood Count 3.02L, Hemoglobin 9.3#L, Hematocrit 26.8# L, Mean Corpuscular Volume 89, Mean Corpuscular Hemoglobin 30.7, Mean Corpuscular Hemoglobin Concent 34.6, Red Cell Distribution Width 12.0, Platelet Count 244, Mean Platelet Volume 5.0L, Neutrophils (%) (Auto) 67.9, Lymphocytes ( %) (Auto) 22.3, Monocytes (%) (Auto) 6.6, Eosinophils (%) (Auto) 2.8, Basophils (%) (Auto) 0.4, Sodium Level 138, Potassium Level 3.6, Chloride Level 105, Carbon Dioxide Level 30, Anion Gap 3L, Blood Urea Nitrogen 6L, Creatinine 0.6, Estimat Glomerular Filtration Rate > 60, Glucose Level 99, Calcium Level 7.6L Height (Feet): 5 Height (Inches): 3.00 Weight (Pounds): 125 General Appearance: alert EENT: normal ENT inspection Neck: normal alignment Cardiovascular: normal peripheral pulses, normal rate, regular rhythm Respiratory/Chest: chest wall non-tender, lungs clear, normal breath sounds Abdomen: normal bowel sounds, non tender, soft Extremities: normal inspection Edema: no edema noted Arm (L), no edema noted Arm (R), no edema noted Leg (L), no edema noted Leg (R), no edema noted Pedal (L), no edema noted Pedal (R), no edema noted Generalized Neurologic: responsive, motor weakness Skin: normal pigmentation, warm/dry Objective r breast sl swollen w drain BEN BINGHAM September 14, 2017 13:38
--- NOTE | 2017-09-14 16:27 | General Progress Note ---
Progress Note Progress Note Surgery: POD #1 s/p evacuation of right breast hematoma. doing well. no acute events. pain improved. no n/v/f/c. h/h low and transfused. afebrile, HD stable, labs improved. drain output minimal wound c/d/i. breast improved. -drain care -wound care -diet as tolerated -activity as tolerated -am labs -likely d/c home tomorrow. Lopez Oliver September 14, 2017 16:27
[2017-09-15] VITALS: BP 125/66
--- NOTE | 2017-09-15 03:45 | Operative Note - Dictated ---
DATE OF OPERATION: 09/13/2017 PREOPERATIVE DIAGNOSIS: Right breast hematoma. POSTOPERATIVE DIAGNOSIS: Right breast hematoma. OPERATION PERFORMED: Evacuation of right breast hematoma. ATTENDING SURGEON: Lopez Oliver M.D. TEACHER ADVISOR: Kobi Crook M.D. ANESTHESIOLOGIST: Kleber Robbins M.D. ANESTHESIA: General SPOUT TENDER. ESTIMATED BLOOD LOSS: Minimal. BLOOD EVACUATED: 1500 mL from right breast. SPECIMENS: None. COMPLICATIONS: None. FLUIDS: Please see anesthesia records. DRAINS: Angel drain left in the right breast. IMPLANTS: The patient's prior 500 mL implant was returned to location. INDICATIONS FOR PROCEDURE: This is a 41-year-old female who 10 days prior to admission had a breast augmentation and BBL in [facility]. The patient was recovering at home here in [place] when she felt some right breast discomfort while moving some items. Over this acutely, the patient noted significant swelling of her right breast and immediately contacted her surgeon in [facility] who recommended her to immediately go to a local hospital for evaluation. In the emergency department, the patient was noted to be anemic and have a significantly larger right breast and CT scan was performed identifying a large right breast hematoma. Surgery was called to evaluate, at which time patient was seen and noted to have a significant hematoma in the right breast that will require management. Given the recent implant placement, Plastic Surgery was consulted for assistance in the operating room with plan to evacuate hematoma, potentially save her augmentation if possible at the discretion of plastic surgeon. Risks, benefits, and alternatives were discussed with the patient in detail who consented to surgery which was performed on 09/13/2017. OPERATIVE NOTE: The patient was taken to the operating room and placed on the operating table in supine position with bilateral arms out. All bony prominences were well padded. The patient was given 2 g Ancef IV prior to entering the operating room. Berg catheter was not inserted. Preoperative time-out was taken identifying the patient, procedure, operative staff, and surgical staff. SCDs were placed. General anesthesia was induced and the patient was intubated. The bilateral breasts were prepped and draped in standard surgical fashion. The patient's prior right breast infraareolar incision was reopened. Upon entering underneath the glandular tissue, approximately 1500 mL of blood and blood clots were evacuated from the right breast. A 500 mL saline implant was removed and placed in sterile antibiotic solution. In evaluating the right breast, it was noted that the patient still had a capsule from her prior augmentation in 2009, which was done underneath the muscle. Her recent operation 10 days ago was a subglandular implant placement but seems that more than likely it was placed submuscular given the location of the implant and the intraoperative evaluation. Copious amounts of warm antibiotic sterile saline were used to irrigate and evacuate the right breast cavity. Electrocautery was used for hemostasis as necessary. No active bleeding was noted and of the hematoma etiology was not seen. were inserted and five minutes of pressure was held. The cavity was evaluated again, no bleeding was noted. Good hemostasis was noted. At this time, the right breast was re-prepped and draped and a change of gloves was performed. Dr. Crook reinserted the patient's right breast implant without complication. Of note, the implant was inspected by both surgeons prior and noted to be intact without any compromise. Once this was completed, the incision was closed in two layers beginning with a deep layer using 3-0 Vicryl sutures followed by #0 Vicryl interrupted dermal sutures and a 4-0 Monocryl subcuticular running skin suture. A small incision was made in the mid inframammary fold using a fresh #15 scalpel in which a 15-[place] Angel drain was inserted and left in the breast cavity for evacuation of contents until healed. Following closure of the skin incisions, dressings were applied. Drain was sutured to skin using a 2-0 nylon suture. The patient tolerated the procedure well, was extubated, and taken to postanesthetic care unit in stable condition. Lopez Oliver M.D. DR: Ruy JOB#: [id number] CC:
[2017-09-15 04:00] VITALS: BP 99/64
[2017-09-15] MEDS: ceFAZolin sod 2 GM in D5W 110 ML IVPB SCH ×2 (05:40→13:58)
[2017-09-15] MEDS: Norco 5mg/325mg tab ORAL PRN ×2 (05:51→11:44)
[2017-09-15 07:20] LABS: ANION GAP 8 mmol/L (5-15); BLOOD UREA NITROGEN 5 mg/dL (7-18); CALCIUM 8.4 MG/DL (8.5-10.1); CARBON DIOXIDE 26 MMOL/L (21-32); CHLORIDE 104 MMOL/L (98-107); CREATININE 0.8 MG/DL (0.55-1.30); POTASSIUM 3.8 MMOL/L (3.5-5.1); SODIUM 138 MMOL/L (136-145)
[2017-09-15 07:32] LABS: BASOPHILS % (AUTO) 0.6 % (0.0-2.0); EOSINOPHILS % (AUTO) 3.5 % (0.0-3.0); HEMATOCRIT 31.5 % (37.0-47.0); HEMOGLOBIN 11.1 G/DL (12.0-16.0); LYMPHOCYTES % (AUTO) 22.2 % (20.0-45.0); MEAN CORPUSCULAR VOLUME 89 FL (80-99); MONOCYTES % (AUTO) 5.8 % (1.0-10.0); PLATELET COUNT 312 K/UL (150-450); RED BLOOD COUNT 3.56 M/UL (4.20-5.40); RED CELL DISTRIBUTION WIDTH 12.6 % (11.6-14.8); WHITE BLOOD COUNT 9.3 K/UL (4.8-10.8)
[2017-09-15 08:00] VITALS: BP 124/61
[2017-09-15] MEDS: Docusate 100mg cap ORAL SCH (08:35)
--- NOTE | 2017-09-15 11:58 | General Progress Note ---
Progress Note Progress Note Surgery: POD #2 s/p evacuation of right breast hematoma. doing well. no acute events. pain minimal. no n/v/f/c. h/h stable afebrile, HD stable, labs improved. drain output minimal wound c/d/i. breast improved. -drain removed -diet as tolerated -activity as tolerated -okay for d/c home follow up and care instructions given to patient Lopez Oliver September 15, 2017 11:58
[2017-09-15 12:00] VITALS: BP 125/60
--- NOTE | 2017-09-15 14:13 | General Progress Note ---
Assessment/Plan Problem List: (1) Breast hematoma after procedure SNOMED: [id number] (2) Anemia ICD Codes: D64.9 - Anemia, unspecified SNOMED: 496012484 Qualifiers: Qualified Codes: D62 - Acute posthemorrhagic anemia Status: stable, progressing, tolerating diet Assessment/Plan wound care pain control trasnfuse prn dc if clear Subjective Constitutional: Reports: weakness Allergies: Coded Allergies: No Known Allergies (Unverified , 09/12/17) All Systems: reviewed and negative except above Subjective s/p r breast drain removed Objective Last 24 Hour Vital Signs Date Time Temp Pulse Resp B/P (MAP) Pulse Ox O2 Delivery O2 Flow Rate FiO2 09/15/17 12:00 98.2 82 17 125/60 98 98.2 09/15/17 08:00 97.3 88 18 124/61 99 97.3 09/15/17 06:50 98.1 09/15/17 05:51 98.1 09/15/17 04:00 98.1 92 18 99/64 98 98.1 09/15/17 00:00 98.2 79 18 125/66 98 98.2 09/14/17 20:00 99.5 85 18 115/67 94 99.5 09/14/17 16:14 98.9 86 20 113/63 99 Room Air 98.9 Intake and Output 09/14/17 09/15/17 19:00 07:00 Intake Total 110 ml 700 ml Output Total 20 ml Balance 110 ml 680 ml Intake Oral 700 ml IV Total 110 ml Output Drainage Total 20 ml # Voids 7 # Bowel Movements 1 Laboratory Tests 09/15/17 05:50: White Blood Count 9.3, Red Blood Count 3.56L, Hemoglobin 11.1L, Hematocrit 31.5L , Mean Corpuscular Volume 89, Mean Corpuscular Hemoglobin 31.2H, Mean Corpuscular Hemoglobin Concent 35.2, Red Cell Distribution Width 12.6, Platelet Count 312, Mean Platelet Volume 4.8L, Neutrophils (%) (Auto) 68.0, Lymphocytes ( %) (Auto) 22.2, Monocytes (%) (Auto) 5.8, Eosinophils (%) (Auto) 3.5H, Basophils (%) (Auto) 0.6, Sodium Level 138, Potassium Level 3.8, Chloride Level 104, Carbon Dioxide Level 26, Anion Gap 8, Blood Urea Nitrogen 5L, Creatinine 0.8, Estimat Glomerular Filtration Rate > 60, Glucose Level 159H, Calcium Level 8.4L Height (Feet): 5 Height (Inches): 3.00 Weight (Pounds): 125 General Appearance: alert EENT: normal ENT inspection Neck: normal alignment Cardiovascular: normal peripheral pulses, normal rate, regular rhythm Respiratory/Chest: chest wall non-tender, lungs clear, normal breath sounds Abdomen: normal bowel sounds, non tender, soft Extremities: normal inspection Edema: no edema noted Arm (L), no edema noted Arm (R), no edema noted Leg (L), no edema noted Leg (R), no edema noted Pedal (L), no edema noted Pedal (R), no edema noted Generalized Neurologic: responsive, motor weakness Skin: normal pigmentation, warm/dry Objective r breast sl swollen BEN BINGHAM September 15, 2017 14:13
[2017-09-15] MEDS ORDERED: COLACE100 MG ORAL (14:49)
[2017-09-15] MEDS ORDERED: NORCO 5-325 TA1 EACH ORAL (14:49)
[2017-09-15] MEDS ORDERED: D5 1/2NS 1000ml IV ONE (15:34)
[2017-09-15] MEDS ORDERED: Tubing IV Secondary IV ONE (15:34)
--- NOTE | 2017-09-16 08:34 | 48 Hour Post Anesthesia Eval ---
Post Anesthesia Evaluation Procedure: Revision of R breast implant, evacuation of hematoma Date of Evaluation: September 14, 2017 Airway: patent Nausea: No Vomiting: No Pain Intensity: 1 Hydration Status: adequate Cardiopulmonary Status: at baseline Mental Status/LOC: patient returned to baseline Post-Anesthesia Complications: 0 Follow-up care needed: N/A - further care as per primary team TAMIKO ARROYO M.D. September 16, 2017 08:34
--- NOTE | 2017-09-16 12:10 | Discharge Summary ---
Discharge Summary Discharge Summary Discharge Summary DATE OF ADMISSION: 09/12/2017 DATE OF DISCHARGE: 09/15/2017 CONSULTANTS: Dr. Lopez Oliver BRIEF HOSPITAL COURSE: Patient is a 41-year-old female, with no medical history, who lives at home, went to [facility] 11 days ago and had breast augmentation. She was initially doing fine the day before admission right breast was tender and was getting swollen. She presented to [facility] ED, examination was consistent with hematoma on the breast. Patient was pale looking, concern over blood loss. Blood work showed hemoglobin of 9.1, hematocrit 26. She was slightly hypotensive and was given IV bolus. Chest CT showed abnormal right breast implant with moderate high density surrounding fluid or blood. She was then admitted for evaluation of anemia and right breast hematoma. She received 2 units packed RBC blood transfusion. Blood level improved posttransfusion. She was seen by surgery. Patient was informed, will eventually need to evacuate the hematoma and implant would be compromised given subdermal placement. On 09/13/2017, she underwent evacuation of right breast hematoma. A Angel drain was left in place. Postoperatively, she was given pain management. Diet as tolerated. Activity as tolerated. Drain was removed on second day postop. Wound was clean dry and intact. She was cleared for discharge home. FINAL DIAGNOSES: Right breast hematoma status post evacuation Anemia requiring blood transfusion DISPOSITION: Patient was discharged home. DISCHARGE MEDICATIONS: Refer to Discharge Medication List. DISCHARGE INSTRUCTIONS: Follow up with in a week. I have been assigned to dictate discharge summary on this account, and I was not involved in the patient's management. Aparna Heath NP September 16, 2017 12:10
== END 2017-09-15 15:35 | disposition home or self-care (01) | DRG 813 ==
LOC: EDBD 14:58 → EMR 15:58 → 3E 16:07 → EDBEDREQ 17:58
PROC: 30233N1 Transfusion of Nonautologous Red Blood Cells into Peripheral Vein, Percutaneous Approach (ICD-10-PCS; 2017-09-13)
PROC: 0HCT0ZZ Extirpation of Matter from Right Breast, Open Approach (ICD-10-PCS; principal; 2017-09-13 14:00)
DX: L76.32 Postprocedural hematoma of skin and subcutaneous tissue following other procedure (principal); I95.9 Hypotension, unspecified; D62 Acute posthemorrhagic anemia; Y83.4 Other reconstructive surgery as the cause of abnormal reaction of the patient, or of later complication, without mention of misadventure at the time of the procedure; Y92.89 Other specified places as the place of occurrence of the external cause
CPT/HCPCS: 36415; 71045; 71260; 80048; 80053; 81003; 81025; 82550; 83605; 85007; 85025; 85610; 85730; 86850; 86900; 86901; 86920; 87081; 87086; 93005; 94003; 94150; 99285; J2250; J2405